=== PATIENT | female | born 1990 | race Caucasian/White ===

== ENCOUNTER 2021-03-13 08:53 | Emergency (ER) | payer BC ==
--- NOTE | 2021-03-13 09:20 | EDM.PDOC ---
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 Patient notes that she had egg retrieval at [facility] with Dr. Mendiola on 03/10 (3 days ago). She noted afterwards nausea with decreased appetite as well as diffuse abdominal cramping pains. She was given Zofran and told that this could be from free fluid in her pelvis. Symptoms have continued throughout the past 3 days. She notes chills but denies fevers. abdomen Pain Score (Numeric/FACES): 8 - Related Data Allergies Allergy/AdvReac Type Severity Reaction Status Date / Time No Known Allergies Allergy Verified 03/13/21 09:06 Home Meds: Home Meds Doxycycline [Vibramycin] 1 tab PO BID 03/13/21 [History] Ondansetron [Zofran ODT] 4 mg PO ASDIRECTED PRN 03/13/21 [History] Promethazine [Phenergan] 25 mg PO Q6H PRN #12 tab 03/13/21 [Rx] oxyCODONE HCl/Acetaminophen [Percocet 10-325 mg Tablet] 0.5 - 1 each PO Q4H PRN #18 tablet 03/13/21 [Rx] Past Medical History - Past Health History Medical/Surgical History: Denies Medical/Surgical History HEENT History: Reports: None Cardiovascular History: Reports: None Respiratory History: Reports: None Gastrointestinal History: Reports: None Genitourinary History: Reports: None 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 History: Reports: None Musculoskeletal History: Reports: None Neurological History: Reports: None Psychiatric History: Reports: None Endocrine/Metabolic History: Reports: None Hematologic History: Reports: None Immunologic History: Reports: None Oncologic (Cancer) History: Reports: None Dermatologic History: Reports: None - Infectious Disease History Infectious Disease History: Reports: Chicken Pox - Past Surgical History Head Surgeries/Procedures: Reports: None HEENT Surgical History: Reports: Adenoidectomy, Oral Surgery, Tonsillectomy Cardiovascular Surgical History: Reports: None Respiratory Surgical History: Reports: None GI Surgical History: Reports: None Female Surgical History: Reports: Other (See Below) Other Female Surgeries/Procedures: egg retrival Endocrine Surgical History: Reports: None Neurological Surgical History: Reports: None Musculoskeletal Surgical History: Reports: None Oncologic Surgical History: Reports: None Dermatological Surgical History: Reports: None Social & Family History - Family History Family Medical History: No Pertinent Family History - Tobacco Use Tobacco Use Status *Q: Never Tobacco User Second Hand Smoke Exposure: No - Caffeine Use Caffeine Use: Reports: None - Recreational Drug Use Recreational Drug Use: No ED ROS GENERAL - Review of Systems Review Of Systems: Comprehensive ROS is negative, except as noted in HPI. ED EXAM, GENERAL - Physical Exam Exam: See Below Exam Limited By: No Limitations General Appearance: Alert, WD/WN, No Apparent Distress Throat/Mouth: Normal Voice, No Airway Compromise Head: Atraumatic, Normocephalic Neck: Normal Inspection Respiratory/Chest: No Respiratory Distress, Lungs Clear, Normal Breath Sounds, No Accessory Muscle Use Cardiovascular: Normal Peripheral Pulses, No Edema, Tachycardia GI/Abdominal: Soft, Other (diffuse abdominal TTP subjetive without guarding) Extremities: Normal Inspection Neurological: Alert, Normal Cognition, Normal Gait Psychiatric: Normal Affect, Normal Mood Skin Exam: Warm, Dry, Intact, Normal Color Course - Vital Signs Last Recorded V/S: Last Vital Signs Temp 98.3 F 03/13/21 11:51 Pulse 67 03/13/21 11:51 Resp 17 03/13/21 11:51 BP 111/73 03/13/21 11:51 Pulse Ox 98 03/13/21 11:51 - Orders/Labs/Meds Orders: Active Orders 24 hr Category Date Time Status HCG QUALITATIVE,URINE [URCHEM] Stat Lab 03/13/21 09:26 Ordered UA W/JARET RFLX IF INDICATED [URIN] Stat Lab 03/13/21 09:26 Ordered Sodium Chloride 0.9% [Saline Flush] Med 03/13/21 09:26 Active 10 ml FLUSH ASDIRECTED PRN Sodium Chloride 0.9% [Saline Flush] Med 03/13/21 09:26 Active 2.5 ml FLUSH ASDIRECTED PRN Saline Lock Insert [OM.PC] Stat Oth 03/13/21 09:26 Ordered Medication Orders Sodium Chloride (Sodium Chloride 0.9% 10 Ml Syringe) 10 ml FLUSH ASDIRECTED PRN PRN Reason: Keep Vein Open Last Admin: 03/13/21 09:41 Dose: 10 ml Documented by: SILVER Sodium Chloride (Sodium Chloride 0.9% 2.5 Ml Syringe) 2.5 ml FLUSH ASDIRECTED PRN PRN Reason: Keep Vein Open Last Admin: 03/13/21 09:41 Dose: 2.5 ml Documented by: SILVER Labs: Laboratory Tests 03/13/21 03/13/21 Range/Units 09:22 09:22 WBC 16.56 H (4.0-11.0) K/uL RBC 4.81 (4.30-5.90) M/uL Hgb 13.1 (12.0-16.0) g/dL Hct 40.0 (36.0-46.0) % MCV 83.2 (80.0-98.0) fL MCH 27.2 (27.0-32.0) pg MCHC 32.8 (31.0-37.0) g/dL RDW Std Deviation 43.9 (28.0-62.0) fl RDW Coeff of Lilly 14 (11.0-15.0) % Plt Count 333 (150-400) K/uL MPV 9.80 (7.40-12.00) fL Neut % (Auto) 81.6 H (48.0-80.0) % Lymph % (Auto) 11.5 L (16.0-40.0) % Leon % (Auto) 6.7 (0.0-15.0) % Eos % (Auto) 0.1 (0.0-7.0) % Baso % (Auto) 0.1 (0.0-1.5) % Neut # (Auto) 13.5 H (1.4-5.7) K/uL Lymph # (Auto) 1.9 (0.6-2.4) K/uL Leon # (Auto) 1.1 H (0.0-0.8) K/uL Eos # (Auto) 0.0 (0.0-0.7) K/uL Baso # (Auto) 0.0 (0.0-0.1) K/uL Nucleated RBC % 0.0 /100WBC Nucleated RBCs # 0 K/uL Sodium 135 L (136-145) mmol/L Potassium 4.1 (3.5-5.1) mmol/L Chloride 103 (98-107) mmol/L Carbon Dioxide 26.0 (21.0-32.0) mmol/L BUN 9 (7.0-18.0) mg/dL Creatinine 0.7 (0.6-1.0) mg/dL Est Cr Clr Drug Dosing 103.32 mL/min Estimated GFR (MDRD) > 60.0 ml/min Glucose 93 (74-106) mg/dL Calcium 8.0 L (8.5-10.1) mg/dL Total Bilirubin 0.3 (0.2-1.0) mg/dL AST 28 (15-37) IU/L ALT 38 (14-63) IU/L Alkaline Phosphatase 85 (46-116) U/L Total Protein 6.9 (6.4-8.2) g/dL Albumin 2.4 L (3.4-5.0) g/dL Globulin 4.5 H (2.6-4.0) g/dL Albumin/Globulin Ratio 0.5 L (0.9-1.6) Meds: Medications Generic Name Dose Route Start Last Admin Trade Name Christopherq PRN Reason Stop Dose Admin Sodium Chloride 10 ml 03/13/21 09:26 03/13/21 09:41 Sodium Chloride 0.9% 10 Ml Syringe FLUSH 10 ml ASDIRECTED PRN Administration Keep Vein Open Sodium Chloride 2.5 ml 03/13/21 09:26 03/13/21 09:41 Sodium Chloride 0.9% 2.5 Ml Syringe FLUSH 2.5 ml ASDIRECTED PRN Administration Keep Vein Open Discontinued Medications Generic Name Dose Route Start Last Admin Trade Name Fretristan PRN Reason Stop Dose Admin Sodium Chloride 1,000 mls @ 999 mls/hr 03/13/21 09:26 03/13/21 09:41 Normal Saline IV 03/13/21 10:26 999 mls/hr .Bolus ONE Administration Ketorolac Tromethamine 15 mg 03/13/21 09:27 03/13/21 09:44 Ketorolac 30 Mg/Ml Sdv IVPUSH 03/13/21 09:28 15 mg ONETIME ONE Administration Morphine Sulfate 4 mg 03/13/21 09:26 03/13/21 09:46 Morphine 4 Mg/Ml Syringe IVPUSH 03/13/21 09:27 4 mg ONETIME ONE Administration Ondansetron HCl 4 mg 03/13/21 09:26 03/13/21 09:43 Ondansetron 4 Mg/2 Ml Sdv IVPUSH 03/13/21 09:27 4 mg ONETIME ONE Administration - Re-Assessments/Exams Free Text/Narrative Re-Assessment/Exam: 03/13/21 09:30 We will treat symptomatically with IV fluid bolus, Toradol, morphine, Zofran. Will get basic labs. After work-up will reach out to Dr. Mendiola. 03/13/21 10:26 I did speak with Dr. Mendiola of [facility] who recommends getting an ultrasound to rule out ovarian torsion although she believes symptoms are most likely consistent with a small amount of free pelvic fluid and ovarian hyperstimulation syndrome considering patient's leukocytosis and hyponatremia. 03/13/21 11:54 Ultrasonography is remarkable for ovarian hyperstimulation syndrome. This is consistent with Dr. Mendiola's assessment. Will discharge patient with Percocet, Phenergan. I recommended that she follow-up with Dr. Mendiola on Monday morning. I explained return precautions for ovarian torsion as patient is at high risk of ovarian torsion. She understands. Departure - Departure Time of Disposition: 11:54 Disposition: Home, Self-Care 01 Condition: Good Clinical Impression: Ovarian hyperstimulation syndrome - Discharge Information Prescriptions: oxyCODONE HCl/Acetaminophen [Percocet 10-325 mg Tablet] 0.5 - 1 each PO Q4H PRN #18 tablet PRN Reason: Pain Promethazine [Phenergan] 25 mg PO Q6H PRN #12 tab PRN Reason: Nausea/Vomiting Instructions: Ovarian Torsion Referrals: Raquel Mendiola MD [Primary Care Provider] - Forms: ED Department Discharge Additional Instructions: Your assessment is consistent with ovarian hyperstimulation syndrome. You have no evidence of ovarian torsion. We did briefly discuss ovarian torsion and if any of the symptoms that we discussed occur then he should come back to the emergency department. Specifically if you experience pain suddenly changing or worsening on one side of your pelvis you need to come back. Our computer system does not have educational information for ovarian hyperstimulation syndrome so I did provide you with some educational information of ovarian torsion. This does not mean that you have ovarian torsion but rather this is a you can read and no signs and symptoms to watch for. If you start experience heavy vaginal bleeding you should also come back. I sent 3 different prescriptions to your pharmacy, two are for pain, one is for nausea. The following information is given to patients seen in the emergency department who are being discharged to home. This information is to outline your options for follow-up care. We provide all patients seen in our emergency department with a follow-up referral. The need for follow-up, as well as the timing and circumstances, are variable depending upon the specifics of your emergency department visit. If you don't have a primary care physician on staff, we will provide you with a referral. We always advise you to contact your personal physician following an emergency department visit to inform them of the circumstance of the visit and for follow-up with them and/or the need for any referrals to a consulting ecialist. The emergency department will also refer you to a specialist when appropriate. This referral assures that you have the opportunity for follow-up care with a specialist. All of these measure are taken in an effort to provide you with optimal care, which includes your follow-up. Under all circumstances we always encourage you to contact your private physician who remains a resource for coordinating your care. When calling for follow-up care, please make the office aware that this follow-up is from your recent emergency room visit. If for any reason you are refused follow-up, please contact the [facility] Emergency Department at and asked to speak to the emergency department charge nurse. Please follow up with your primary care physician. If you do not have a primary care physician, see below: [facility] [address] [place] [id number] [facility] [address] [place] [id number] [facility] [address] [place] [id number] Sepsis Event Note (ED) - Evaluation Sepsis Screening Result: No Definite Risk - Focused Exam Vital Signs: Vital Signs Temp Pulse Resp BP Pulse Ox 03/13/21 11:51 98.3 F 67 17 111/73 98 03/13/21 09:08 97.4 F 128 H 18 121/80 97 - My Orders Last 24 Hours: My Active Orders 03/13/21 09:26 HCG QUALITATIVE,URINE [URCHEM] Stat UA W/JARET RFLX IF INDICATED [URIN] Stat Sodium Chloride 0.9% [Saline Flush] 10 ml FLUSH ASDIRECTED PRN Sodium Chloride 0.9% [Saline Flush] 2.5 ml FLUSH ASDIRECTED PRN Saline Lock Insert [OM.PC] Stat - Assessment/Plan Last 24 Hours: My Active Orders 03/13/21 09:26 HCG QUALITATIVE,URINE [URCHEM] Stat UA W/JARET RFLX IF INDICATED [URIN] Stat Sodium Chloride 0.9% [Saline Flush] 10 ml FLUSH ASDIRECTED PRN Sodium Chloride 0.9% [Saline Flush] 2.5 ml FLUSH ASDIRECTED PRN Saline Lock Insert [OM.PC] Stat
[2021-03-13] MEDS ORDERED: Sodium Chloride 0.9% 1,000 ML IV ONE (09:26)
[2021-03-13] MEDS ORDERED: Sodium Chloride 0.9% 10 ML Syringe FLUSH PRN (09:26)
[2021-03-13] MEDS ORDERED: Morphine 4 MG/ML Syringe IVPUSH ONE ×2 (09:26→11:57)
[2021-03-13] MEDS ORDERED: Ondansetron 4 MG/2 ML SDV IVPUSH ONE ×2 (09:26→11:57)
[2021-03-13] MEDS ORDERED: Sodium Chloride 0.9% 2.5 ML Syringe FLUSH PRN (09:26)
[2021-03-13] MEDS ORDERED: Ketorolac 30 MG/ML SDV IVPUSH ONE (09:27)
[2021-03-13 09:47] LABS: BLOOD UREA NITROGEN,BUN 9 mg/dL (7.0-18.0); CHLORIDE,CL 103 mmol/L (98-107); GLUCOSE RANDOM 93 mg/dL (74-106); POTASSIUM,K 4.1 mmol/L (3.5-5.1); SODIUM,NA 135 mmol/L (136-145)
--- NOTE | 2021-03-13 11:50 | US ---
Indication: Bilateral pelvic pain. Technique: Pelvic ultrasound. Endovaginal imaging of the pelvis was obtained to better evaluate the adnexa and endometrial complex. Color/spectral Doppler was performed to evaluate for ovarian torsion. Comparison: None. Findings: Uterine corpus measures 8.9 x 5.4 x 3.8 cm. Right ovary measures 11.4 x 6.8 x 10.6 cm. Left ovary measures 10.0 x 5.8 x 10.0 cm. There is a moderate amount of ascites in the rectovaginal pouch of Mike. The ovaries are enlarged bilaterally, with multiple follicular cysts. There is no evidence on grayscale imaging or color/spectral Doppler for ovarian torsion. Normal, low resistance arterial blood flow is preserved bilaterally to both ovaries. Impression: 1. Findings are suspicious for ovarian hyperstimulation syndrome. 2. No findings on grayscale imaging, or color/spectral Doppler, for ovarian torsion. 3. Report called to Dr. Gunn, Emergency Department, 03/13/21, 1150 am. Dictated by Matt Andrews MD @ 03/13/2021 11:50:[address] Matt Andrews @ Jem 2020 11:50AM
[2021-03-13 12:38] VITALS: BP 107/68; PULSE 96
== END 2021-03-13 12:38 | disposition home or self-care (01) ==
LOC: MW.ED 08:53
DX: N99.83 Residual ovary syndrome (principal)
CPT/HCPCS: 36415; 76830; 80053; 85025; 96374; 96375; 96376; 99284; J1885; J2270; J2405; J7030; 76857

== ENCOUNTER 2021-06-08 21:12 | Emergency (ER) | payer BC ==
--- NOTE | 2021-06-09 00:40 | EDM.PDOC ---
ED HPI GENERAL MEDICAL PROBLEM - General Chief Complaint: CAREGIVERS NON MEDICAL Problem Stated Complaint: 5 WEEKS , BLEEDING Time Seen by Provider: 06/09/21 00:15 Source of Information: Reports: Patient History Limitations: Reports: No Limitations - History of Present Illness INITIAL COMMENTS - FREE TEXT/NARRATIVE: Patient is a 30-year-old female who states he 2 possibly 5 weeks and has been undergoing in vitro fertilization presents today for vaginal bleeding. She has had her beta tested 3 times last week and is being improving appropriately. States this evening she developed some vaginal bleeding also clots being passed. She came directly here did not place a pad. She states she does not feel tired or weak or have any lightheadedness. She does have some lower abdominal cramping but is manageable. She denies any nausea vomiting fever chills. - Related Data Allergies Allergy/AdvReac Type Severity Reaction Status Date / Time No Known Allergies Allergy Verified 03/13/21 09:06 Home Meds: Home Meds Doxycycline [Vibramycin] 1 tab PO BID 03/13/21 [History] Ibuprofen [Motrin] 600 mg PO Q6H PRN #20 tab 03/13/21 [Rx] Ondansetron [Zofran ODT] 4 mg PO ASDIRECTED PRN 03/13/21 [History] Promethazine [Phenergan] 25 mg PO Q6H PRN #12 tab 03/13/21 [Rx] oxyCODONE HCl/Acetaminophen [Percocet 10-325 mg Tablet] 0.5 - 1 each PO Q4H PRN #18 tablet 03/13/21 [Rx] Past Medical History - Past Health History Medical/Surgical History: Denies Medical/Surgical History HEENT History: Reports: None Cardiovascular History: Reports: None Respiratory History: Reports: None Gastrointestinal History: Reports: None Genitourinary History: Reports: None CAREGIVERS NON MEDICAL History: Reports: None Musculoskeletal History: Reports: None Neurological History: Reports: None Psychiatric History: Reports: None Endocrine/Metabolic History: Reports: None Hematologic History: Reports: None Immunologic History: Reports: None Oncologic (Cancer) History: Reports: None Dermatologic History: Reports: None - Infectious Disease History Infectious Disease History: Reports: Chicken Pox - Past Surgical History Head Surgeries/Procedures: Reports: None HEENT Surgical History: Reports: Adenoidectomy, Oral Surgery, Tonsillectomy Cardiovascular Surgical History: Reports: None Respiratory Surgical History: Reports: None GI Surgical History: Reports: None Female Surgical History: Reports: Other (See Below) Other Female Surgeries/Procedures: egg retrival Endocrine Surgical History: Reports: None Neurological Surgical History: Reports: None Musculoskeletal Surgical History: Reports: None Oncologic Surgical History: Reports: None Dermatological Surgical History: Reports: None Social & Family History - Family History Family Medical History: No Pertinent Family History - Tobacco Use Tobacco Use Status *Q: Never Tobacco User - Caffeine Use Caffeine Use: Reports: None ED ROS GENERAL - Review of Systems Review Of Systems: See Below Constitutional: Reports: No Symptoms HEENT: Reports: No Symptoms Respiratory: Reports: No Symptoms Cardiovascular: Reports: No Symptoms Endocrine: Reports: No Symptoms GI/Abdominal: Reports: No Symptoms : Reports: Other (Vaginal bleeding) Musculoskeletal: Reports: No Symptoms Skin: Reports: No Symptoms Neurological: Reports: No Symptoms Psychiatric: Reports: No Symptoms Hematologic/Lymphatic: Reports: No Symptoms Immunologic: Reports: No Symptoms ED EXAM - Physical Exam Exam: See Below Exam Limited By: No Limitations General Appearance: Alert, WD/WN, No Apparent Distress Respiratory/Chest: No Respiratory Distress, Lungs Clear, Normal Breath Sounds Cardiovascular: Normal Peripheral Pulses, Regular Rate, Rhythm GI/Abdominal Exam: Normal Bowel Sounds, Soft, Non-Tender Extremities: Normal Inspection Neurological: Alert, Oriented Course - Vital Signs Last Recorded V/S: Last Vital Signs Temp 97.3 F 06/08/21 21:24 Pulse 104 H 06/08/21 21:24 Resp 18 06/08/21 21:24 BP 142/78 H 06/08/21 21:24 Pulse Ox 100 06/08/21 21:24 - Orders/Labs/Meds Orders: Active Orders 24 hr Category Date Time Status UA W/MICROSCOPIC [URIN] Stat Lab 06/08/21 21:22 Ordered Labs: Laboratory Tests 06/09/21 06/09/21 06/09/21 Range/Units 00:20 00:20 00:20 WBC 7.44 (4.0-11.0) K/uL RBC 4.82 (4.30-5.90) M/uL Hgb 13.0 (12.0-16.0) g/dL Hct 39.2 (36.0-46.0) % MCV 81.3 (80.0-98.0) fL MCH 27.0 (27.0-32.0) pg MCHC 33.2 (31.0-37.0) g/dL RDW Std Deviation 43.5 (28.0-62.0) fl RDW Coeff of Lilly 15 (11.0-15.0) % Plt Count 316 (150-400) K/uL MPV 9.20 (7.40-12.00) fL Neut % (Auto) 57.5 (48.0-80.0) % Lymph % (Auto) 34.0 (16.0-40.0) % [place] % (Auto) 7.7 (0.0-15.0) % Eos % (Auto) 0.7 (0.0-7.0) % Baso % (Auto) 0.1 (0.0-1.5) % Neut # (Auto) 4.3 (1.4-5.7) K/uL Lymph # (Auto) 2.5 H (0.6-2.4) K/uL [place]y # (Auto) 0.6 (0.0-0.8) K/uL Eos # (Auto) 0.1 (0.0-0.7) K/uL Baso # (Auto) 0.0 (0.0-0.1) K/uL Sodium 139 (136-145) mmol/L Potassium 3.2 L (3.5-5.1) mmol/L Chloride 104 (98-107) mmol/L Carbon Dioxide 26.1 (21.0-32.0) mmol/L BUN 6 L (7.0-18.0) mg/dL Creatinine 0.7 (0.6-1.0) mg/dL Est Cr Clr Drug Dosing 103.32 mL/min Estimated GFR (MDRD) > 60.0 ml/min Glucose 115 H (74-106) mg/dL Calcium 8.4 L (8.5-10.1) mg/dL Total Bilirubin 0.2 (0.2-1.0) mg/dL AST 31 (15-37) IU/L ALT 69 H (14-63) IU/L Alkaline Phosphatase 89 (46-116) U/L Total Protein 7.0 (6.4-8.2) g/dL Albumin 3.2 L (3.4-5.0) g/dL Globulin 3.8 (2.6-4.0) g/dL Albumin/Globulin Ratio 0.8 L (0.9-1.6) HCG, Quant 8084.0 mIU/mL Blood Type O POSITIVE - Re-Assessments/Exams Free Text/Narrative Re-Assessment/Exam: 06/09/21 01:44 Patient beta is 8084 again patient does not have a pattern. We are going to do a pelvic exam however patient would like to wait at this time. He understands risk of not doing a pelvic exam. Patient will call [place] her in vitro fertilization tomorrow to try to change follow-up to have a repeat ultrasound done. She is also O+. Departure - Departure Time of Disposition: 01:46 Disposition: Home, Self-Care 01 Condition: Good Clinical Impression: Vaginal bleeding in - Discharge Information *PRESCRIPTION DRUG MONITORING PROGRAM REVIEWED*: Not Applicable *COPY OF PRESCRIPTION DRUG MONITORING REPORT IN PATIENT DIDI: Not Applicable Instructions: Vaginal Bleeding During , First Trimester Referrals: PCP,Not In Area [Primary Care Provider] - Forms: ED Department Discharge Additional Instructions: The following information is given to patients seen in the emergency department who are being discharged to home. This information is to outline your options for follow-up care. We provide all patients seen in our emergency department with a follow-up referral. The need for follow-up, as well as the timing and circumstances, are variable depending upon the specifics of your emergency department visit. If you don't have a primary care physician on staff, we will provide you with a referral. We always advise you to contact your personal physician following an emergency department visit to inform them of the circumstance of the visit and for follow-up with them and/or the need for any referrals to a consulting specialist. The emergency department will also refer you to a specialist when appropriate. This referral assures that you have the opportunity for follow-up care with a specialist. All of these measure are taken in an effort to provide you with optimal care, which includes your follow-up. Under all circumstances we always encourage you to contact your private physician who remains a resource for coordinating your care. When calling for follow-up care, please make the office aware that this follow-up is from your re cent emergency room visit. If for any reason you are refused follow-up, please contact the [facility] Emergency Department at and asked to speak to the emergency department charge nurse. Please follow up with your primary care physician. If you do not have a primary care physician, see below: [facility] [address] [place] [id number] [facility] [address] [place] [id number] You were seen today for vaginal bleeding. We repeated your beta hCG and is now 8084. You follow-up in [place] recommend call your doctor tomorrow to be beta listed is to have your beta redrawn. Have any increased bleeding feeling tired or fatigued or seen tissue please return to the ED immediately otherwise continue to follow-up with your primary care physician/[employer] doctor. Sepsis Event Note (ED) - Focused Exam Vital Signs: Vital Signs Temp Pulse Resp BP Pulse Ox 06/08/21 21:24 97.3 F 104 H 18 142/78 H 100 - Assessment/Plan Plan: Patient is a 30-year-old female who presents today for vaginal bleeding. Patient believes to be around 5 weeks . She says her last beta was around 1300 on Monday we will recheck her beta do a pelvic exam reassess patient.
[2021-06-09 01:15] LABS: BLOOD UREA NITROGEN,BUN 6 mg/dL (7.0-18.0); CARBON DIOXIDE,CO2 26.1 mmol/L (21.0-32.0); CHLORIDE,CL 104 mmol/L (98-107); GLUCOSE RANDOM 115 mg/dL (74-106); POTASSIUM,K 3.2 mmol/L (3.5-5.1); SODIUM,NA 139 mmol/L (136-145)
[2021-06-09 01:56] VITALS: BP 136/86; PULSE 109
== END 2021-06-09 01:57 | disposition home or self-care (01) ==
LOC: MW.ED 21:12
DX: O20.9 Hemorrhage in early pregnancy, unspecified (principal); Z3A.01 Less than 8 weeks gestation of pregnancy
CPT/HCPCS: 36415; 80053; 84702; 85025; 86900; 86901; 99284

== ENCOUNTER 2021-06-15 08:21 | Emergency (ER) | payer BC ==
--- NOTE | 2021-06-15 11:53 | US ---
INDICATION: female; vaginal bleeding. TECHNIQUE: Transvaginal pelvic ultrasound. FINDINGS: Single viable intrauterine gestation of 6 weeks and 2 days duration. cardiac activity is noted at 110 beats per minute. [place]-rump length is measuring 0.23 cm. Yolk sac is measuring 0.58 cm. Right ovary is not visualized and the left ovary is measuring 1.4 x 2.4 x 1.4 cm. No free fluid in the cul de sac. Expected date of delivery is 02/06/2022. A 1.8 x 0.4 x 1.6 cm subchorionic hemorrhage. Impression : 1. Single viable intrauterine gestation of 6 weeks and 2 days duration. 2. The 1.8 x 0.4 x 1.6 cm subchorionic hemorrhage. 3. cardiac activity is noted at 110 beats per minute. Dictated by William Singh MD @ 06/15/2021 11:51:30 AM (Electronically Signed)
--- NOTE | 2021-06-15 12:27 | EDM.PDOC ---
ED HPI GENERAL MEDICAL PROBLEM - General Chief Complaint: General Stated Complaint: and heavily bleeding Time Seen by Provider: 06/15/21 08:27 - History of Present Illness INITIAL COMMENTS - FREE TEXT/NARRATIVE: CHIEF COMPLAINT(S): Vaginal bleeding HISTORY OF PRESENT ILLNESS: This is a 31-year-old woman approximately 6 weeks and 3 days via IVF who presents to the emergency department with vaginal bleeding. Patient states that she had embryo transfer on May 21, 2021. She states that she has had some vaginal bleeding for approximately 1 week intermittent. She states that she has been mostly passing clots. She states today however she has been soaking through 2 pads in 1 hour and had a large blood clot. She denies any vaginal pain, vaginal discharge, pelvic pain. She states that they told her to come to the emergency department. She denies any chest pain, shortness of breath, injury. REVIEW OF SYSTEMS: Constitutional: Denies fever, chills. Eyes: Denies eye pain Ears, Nose, Mouth, & Throat: Denies earache Cardiovascular: Denies chest pain Respiratory: Denies shortness of breath Gastrointestinal: Denies Nausea, vomiting, diarrhea, hematochezia. Genitourinary: Positive for vaginal bleeding. Denies pelvic pain denies hematuria Skin:Denies a rash MSK: Denies joint pain Neurological: Denies blurred vision Psychiatric: Denies depression PAST MEDICAL HISTORY: As per history of present illness and as reviewed below otherwise noncontributory. SURGICAL HISTORY: As per history of present illness and as reviewed below otherwise noncontributory. SOCIAL HISTORY: As per history of present illness and as reviewed below otherwise noncontributory. FAMILY HISTORY: As per history of present illness and as reviewed below otherwise noncontributory. EXAMINATION OF ORGAN SYSTEMS/BODY AREAS: Constitutional: Heart rate 92, respiratory rate 20 with an oxygen saturation of 99% on room air. Temperature 36.6. Blood pressure 130/84 General: Default value Psychiatric: Appropriate mood and affect. Eyes: No scleral icterus or conjunctival erythema ENMT: Moist mucous membranes. No pharyngeal erythema Cardiovascular: Regular, rate, and rhythm. No gallops, murmurs, or rubs. Bilateral upper extremity pulses symmetric and intact. No peripheral edema. No JVD. Respiratory: Lungs clear to auscultation bilaterally. No wheezes, rales, or rhonchi. Gastrointestinal: Soft, non-tender, non-distended. Normoactive bowel sounds Genitourinary: No suprapubic tenderness on sterile speculum examination with RN cattle sprayer present there was some blood in the posterior vaginal vault. No clots noted. No active bleeding noted. Cervix is abnormal but does not appear to be dilated. No adnexal or cervical motion tenderness. Musculoskeletal: Normal range of motion. Skin: No lesions or abrasions. Neurological: Alert, GCS 15 MEDICAL DECISION MAKING AND COURSE IN THE ED WITH INTERPRETATION/REVIEW OF DIAGNOSTIC STUDIES: This is a 31-year-old woman who is approximately 6 weeks and 3 days via in vitro fertilization who comes to the emergency department with vaginal bleeding and vaginal clots. At this time obtain CBC, hCG and type and screen. Will obtain a formal ultrasound. Bedside transabdominal OB ultrasound performed by self There appears to be heart rate with heart tones in the 100s. No other obvious abnormality. Laboratory: CBC is unremarkable. hCG is 27,312 which is up from prior. The radiological images were viewed by myself along with reading the report from the radiologist. Transabdominal OB ultrasound reveals a single viable intrauterine gestation of 6 weeks and 2 days. There is a small subchorionic hemorrhage. After imaging I did contact [facility] and spoke with Dr. Gibson who recommended close follow-up with obstetrics at [facility]. I did discuss the results with the patient. At this time she was amenable to discharge. We did contact [facility] and set up close follow-up appointment. She was given strict return precautions. Patient was amenable to discharge and had no further questions. DISPOSITION: The patient was discharged home in stable condition. The patient will follow up with OB at her scheduled appointment. CONDITION: Fair PROCEDURES: None FINAL IMPRESSION(S)/DIAGNOSES: 1. Acute vaginal bleeding, threatened Alex Freeman M.D. 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 History: Reports: None Musculoskeletal History: Reports: None Neurological History: Reports: None Psychiatric History: Reports: None Endocrine/Metabolic History: Reports: None Hematologic History: Reports: None Immunologic History: Reports: None Oncologic (Cancer) History: Reports: None Dermatologic History: Reports: None - Infectious Disease History Infectious Disease History: Reports: Chicken Pox - Past Surgical History Head Surgeries/Procedures: Reports: None HEENT Surgical History: Reports: Adenoidectomy, Oral Surgery, Tonsillectomy Cardiovascular Surgical History: Reports: None Respiratory Surgical History: Reports: None GI Surgical History: Reports: None Female Surgical History: Reports: Other (See Below) Other Female Surgeries/Procedures: egg retrival Endocrine Surgical History: Reports: None Neurological Surgical History: Reports: None Musculoskeletal Surgical History: Reports: None Oncologic Surgical History: Reports: None Dermatological Surgical History: Reports: None Social & Family History - Family History Family Medical History: No Pertinent Family History - Tobacco Use Second Hand Smoke Exposure: No - Caffeine Use Caffeine Use: Reports: None - Recreational Drug Use Recreational Drug Use: No ED ROS GENERAL - Review of Systems Review Of Systems: See Below ED EXAM, GENERAL - Physical Exam Exam: See Below Course - Vital Signs Last Recorded V/S: Last Vital Signs Temp 37.1 C 06/15/21 12:50 Pulse 105 H 06/15/21 12:50 Resp 20 06/15/21 12:50 BP 143/87 H 06/15/21 12:50 Pulse Ox 97 06/15/21 12:50 - Orders/Labs/Meds Labs: Laboratory Tests 06/15/21 06/15/21 06/15/21 Range/Units 09:22 09:22 09:22 WBC 9.90 (4.0-11.0) K/uL RBC 5.01 (4.30-5.90) M/uL Hgb 13.5 (12.0-16.0) g/dL Hct 40.5 (36.0-46.0) % MCV 80.8 (80.0-98.0) fL MCH 26.9 L (27.0-32.0) pg MCHC 33.3 (31.0-37.0) g/dL RDW Std Deviation 43.6 (28.0-62.0) fl RDW Coeff of Lilly 15 (11.0-15.0) % Plt Count 356 (150-400) K/uL MPV 9.60 (7.40-12.00) fL Neut % (Auto) 73.2 (48.0-80.0) % Lymph % (Auto) 20.8 (16.0-40.0) % Howell % (Auto) 5.4 (0.0-15.0) % Eos % (Auto) 0.5 (0.0-7.0) % Baso % (Auto) 0.1 (0.0-1.5) % Neut # (Auto) 7.3 H (1.4-5.7) K/uL Lymph # (Auto) 2.1 (0.6-2.4) K/uL Howell # (Auto) 0.5 (0.0-0.8) K/uL Eos # (Auto) 0.1 (0.0-0.7) K/uL Baso # (Auto) 0.0 (0.0-0.1) K/uL Nucleated RBC % 0.0 /100WBC Nucleated RBCs # 0 K/uL HCG, Quant 67473.0 mIU/mL Blood Type O POSITIVE Antibody Screen NEGATIVE Departure - Departure Time of Disposition: 12:26 Disposition: Home, Self-Care 01 Condition: Fair Clinical Impression: Threatened , Subchorionic bleed - Discharge Information *PRESCRIPTION DRUG MONITORING PROGRAM REVIEWED*: No *COPY OF PRESCRIPTION DRUG MONITORING REPORT IN PATIENT DIDI: No Instructions: Threatened Miscarriage, [id number], Vaginal Bleeding During , First Trimester, [id number] Referrals: [facility] [Outside] - 06/17/21 10:45 am (You previously have an US scheduled for this day. [facility] will call you with any changes to appointment times. 0900: Ultrasound 1045: Dr. Lopez) Forms: ED Department Discharge Additional Instructions: You were evaluated today on an emergent basis. We did speak with your specialist at [facility]. They recommended you set up care with [facility]estin here in [place]. I would contact them today to set up an appointment. I do understand that they told you that they typically see patients at 8 weeks or longer however given the recommendation from Dr. Gibson would like you to follow-up sooner. If you have any worsening bleeding, worsening pain or you're concerned please return to the emergency department. [facility] [address] [place] [address] [facility] [address] [place] [id number] The patient is informed of any results of their evaluation and diagnostic workup and all questions are answered. They are given discharge instructions and return precautions. The patient is stable for discharge. The patient states they understand and agree with the plan and that they will return if their symptoms get worse or if they have any new concerns. The following information is given to patients seen in the emergency department who are being discharged to home. This information is to outline your options for follow-up care. We provide all patients seen in our emergency department with a follow-up referral. The need for follow-up, as well as the timing and circumstances, are variable depending upon the specifics of your emergency department visit. If you don't have a primary care physician on staff, we will provide you with a referral. We always advise you to contact your personal physician following an emergency department visit to inform them of the circumstance of the visit and f or follow-up with them and/or the need for any referrals to a consulting specialist. The emergency department will also refer you to a specialist when appropriate. This referral assures that you have the opportunity for follow-up care with a specialist. All of these measure are taken in an effort to provide you with optimal care, which includes your follow-up. Under all circumstances we always encourage you to contact your private physician who remains a resource for coordinating your care. When calling for follow-up care, please make the office aware that this follow-up is from your recent emergency room visit. If for any reason you are refused follow-up, please contact the [facility] Emergency Department at and asked to speak to the emergency department charge nurse. Sepsis Event Note (ED) - Evaluation Sepsis Screening Result: No Definite Risk
[2021-06-15 16:49] VITALS: BP 143/87; PULSE 105
== END 2021-06-15 12:50 | disposition home or self-care (01) ==
LOC: MW.ED 08:21
DX: O20.0 Threatened abortion (principal); Z3A.01 Less than 8 weeks gestation of pregnancy
CPT/HCPCS: 36415; 76817; 76817-26; 84702; 85025; 86850; 86900; 86901; 99284-25

== ENCOUNTER 2021-07-09 05:31 | Day surgery (SDC) | payer BC ==
[2021-07-09] MEDS ORDERED: Lactated Ringers 1,000 ML IV SCH (06:00)
[2021-07-09] MEDS ORDERED: Scopolamine 1.5 MG Transdermal Patch TOP ONE (06:42)
[2021-07-09] MEDS ORDERED: Metoclopramide 10 MG/2 ML SDV IVPUSH PRN (06:46)
[2021-07-09] MEDS ORDERED: HYDROmorphone 1 MG/ML Syringe IVPUSH PRN (06:46)
[2021-07-09] MEDS ORDERED: Naloxone 0.4 MG/ML SDV IVPUSH PRN (06:46)
[2021-07-09] MEDS ORDERED: Albuterol 0.083% 2.5 MG/3 ML Neb Soln NEB PRN (06:46)
[2021-07-09] MEDS ORDERED: Morphine 2 MG/ML SYRINGE IVPUSH PRN (06:46)
[2021-07-09] MEDS ORDERED: fentaNYL 100 MCG/2 ML SDV IVPUSH PRN (06:46)
--- NOTE | 2021-07-09 06:46 | PCM.PREANE ---
Preanesthetic Assessment - Procedure Proposed Procedure: Hysteroscopy, D&C - Anesthesia/Transfusion/Family Hx Anesthesia History: Prior Anesthesia Without Reaction Family History of Anesthesia Reaction: No Transfusion History: No Prior Transfusion(s) - Review of Systems General: No Symptoms Pulmonary: No Symptoms Cardiovascular: No Symptoms Gastrointestinal: No Symptoms Neurological: No Symptoms Other: Reports: None - Physical Assessment NPO Status Date: 07/08/21 NPO Status Time: 20:30 Vital Signs: Last Vital Signs Temp 97.5 F 07/09/21 05:47 Pulse 90 07/09/21 05:47 Resp 16 07/09/21 05:47 BP 113/78 07/09/21 05:47 Pulse Ox 100 07/09/21 05:47 Height: 5 ft 4 in Weight: 69.853 kg ASA Class: 1 Mental Status: Alert & Oriented x3 Airway Class: Mallampati = 3 Dentition: Reports: Normal Dentition Thyro-Mental Finger Breadths: 3 Mouth Opening Finger Breadths: 3 ROM/Head Extension: Full Lungs: Clear to Auscultation, Normal Respiratory Effort - Lab Values: Laboratory Last Values WBC 6.61 K/uL (4.0-11.0) 07/09/21 06:03 RBC 4.39 M/uL (4.30-5.90) 07/09/21 06:03 Hgb 11.5 g/dL (12.0-16.0) L 07/09/21 06:03 Hct 36.1 % (36.0-46.0) 07/09/21 06:03 MCV 82.2 fL (80.0-98.0) 07/09/21 06:03 MCH 26.2 pg (27.0-32.0) L 07/09/21 06:03 MCHC 31.9 g/dL (31.0-37.0) 07/09/21 06:03 RDW Std Deviation 44.5 fl (28.0-62.0) 07/09/21 06:03 RDW Coeff of Lilly 15 % (11.0-15.0) 07/09/21 06:03 Plt Count 327 K/uL (150-400) 07/09/21 06:03 MPV 9.50 fL (7.40-12.00) 07/09/21 06:03 Neut % (Auto) 50.1 % (48.0-80.0) 07/09/21 06:03 Lymph % (Auto) 39.3 % (16.0-40.0) 07/09/21 06:03 [place] % (Auto) 7.9 % (0.0-15.0) 07/09/21 06:03 Eos % (Auto) 2.4 % (0.0-7.0) 07/09/21 06:03 Baso % (Auto) 0.3 % (0.0-1.5) 07/09/21 06:03 Neut # (Auto) 3.3 K/uL (1.4-5.7) 07/09/21 06:03 Lymph # (Auto) 2.6 K/uL (0.6-2.4) H 07/09/21 06:03 [place] # (Auto) 0.5 K/uL (0.0-0.8) 07/09/21 06:03 Eos # (Auto) 0.2 K/uL (0.0-0.7) 07/09/21 06:03 Baso # (Auto) 0.0 K/uL (0.0-0.1) 07/09/21 06:03 Nucleated RBC % 0.0 /100WBC 07/09/21 06:03 Nucleated RBCs # 0 K/uL 07/09/21 06:03 - Allergies Allergies/Adverse Reactions: Allergies Allergy/AdvReac Type Severity Reaction Status Date / Time No Known Allergies Allergy Verified 07/09/21 06:21 - Acknowledgements Anesthesia Type Planned: General Anesthesia Pt an Appropriate Candidate for the Planned Anesthesia: Yes Alternatives and Risks of Anesthesia Discussed w Pt/Guardian: Yes Pt/Guardian Understands and Agrees with Anesthesia Plan: Yes PreAnesthesia Questionnaire - Past Health History Medical/Surgical History: Denies Medical/Surgical History HEENT History: Reports: None Cardiovascular History: Reports: None Respiratory History: Reports: None Gastrointestinal History: Reports: None Genitourinary History: Reports: None HR DIRECTOR History: Reports: None Musculoskeletal History: Reports: None Neurological History: Reports: None Psychiatric History: Reports: None Endocrine/Metabolic History: Reports: None Hematologic History: Reports: None Immunologic History: Reports: None Oncologic (Cancer) History: Reports: None Dermatologic History: Reports: None - Infectious Disease History Infectious Disease History: Reports: Chicken Pox - Past Surgical History Head Surgeries/Procedures: Reports: None HEENT Surgical History: Reports: Adenoidectomy, Oral Surgery, Tonsillectomy Cardiovascular Surgical History: Reports: None Respiratory Surgical History: Reports: None GI Surgical History: Reports: None Female Surgical History: Reports: LEEP, Other (See Below) Other Female Surgeries/Procedures: egg retrival, states christiano salpingectomy Endocrine Surgical History: Reports: None Neurological Surgical History: Reports: None Musculoskeletal Surgical History: Reports: None Oncologic Surgical History: Reports: None Dermatological Surgical History: Reports: None - SUBSTANCE USE Tobacco Use Status *Q: Never Tobacco User - HOME MEDS Home Medications: Home Meds Desogestrel-Ethinyl Estradiol [Isibloom 28 Day Tablet] 1 tab PO DAILY 07/02/21 [History] - CURRENT (IN HOUSE) MEDS Current Meds: Current Medications Lactated Ringer's (Ringers, Lactated) 1,000 mls @ 125 mls/hr IV ASDIRECTED [facility] Last Admin: 07/09/21 06:15 Dose: 125 mls/hr Documented by: Scopolamine (Scopolamine 1.5 Mg Transdermal Patch) 1.5 mg TOP ONETIME ONE Stop: 07/09/21 06:43
[2021-07-09] MEDS ORDERED: Propofol 200 MG/20 ML SDV ONE (06:56)
[2021-07-09] MEDS ORDERED: fentaNYL 100 MCG/2 ML SDV ONE (06:56)
[2021-07-09] MEDS ORDERED: Midazolam 1 MG/ML 2 ML SDV ONE (06:57)
[2021-07-09] MEDS ORDERED: Ketorolac 30 MG/ML SDV ONE (06:58)
[2021-07-09] MEDS ORDERED: Glycopyrrolate 0.2 MG/ML SDV ONE (06:58)
[2021-07-09] MEDS ORDERED: Lidocaine 2% 5 ML SDV ONE (06:58)
[2021-07-09] MEDS ORDERED: ceFAZolin 1 GM Vial ONE (07:00)
[2021-07-09] MEDS ORDERED: Sodium Chloride 0.9% 20 ML ONE (07:00)
[2021-07-09] MEDS ORDERED: Dexamethasone 4 MG/ML 5 ML MDV ONE (07:12)
[2021-07-09] MEDS ORDERED: Ketorolac 30 MG/ML SDV IVPUSH ONE (07:41)
--- NOTE | 2021-07-09 07:45 | PCM.OPNOTE ---
- General Post-Op/Procedure Note Date of Surgery/Procedure: 07/09/21 Operative Procedure(s): Diagnostic hysteroscopy. Dilation and curettage Findings: Normal-sized anteverted uterus, sound to 8cm Scant clot and tissue within uterus Pre Op Diagnosis: 31yo with thickened endometrium, suspected incomplete Post-Op Diagnosis: Same Anesthesia Technique: General LMA Primary Surgeon: Robina Massey Anesthesia Provider: Elder Bailey Pathology: Endometrial curettings Fluid Replacement, Intraop: 600 Output, Urine Amount: 25 EBL in mLs: 5 Complications: None Condition: Good Free Text/Narrative:: Intake & Output 07/08/21 07/09/21 07/09/21 22:59 06:59 14:59 Output Total 25 Balance -25 1g Ancef IV given for antibiotic prophylaxis Hysteroscopic fluid deficit 100cc NS
--- NOTE | 2021-07-09 07:53 | PCM.POSTAN ---
POST ANESTHESIA ASSESSMENT - MENTAL STATUS Mental Status: Alert, Oriented - VITAL SIGNS Vital Signs: Last Vital Signs Temp 96.8 F L 07/09/21 07:40 Pulse 70 07/09/21 07:45 Resp 14 07/09/21 07:45 BP 86/47 L 07/09/21 07:45 Pulse Ox 100 07/09/21 07:45 - RESPIRATORY Respiratory Status: Respiratory Rate WNL, Airway Patent, O2 Saturation Stable - CARDIOVASCULAR CV Status: Pulse Rate WNL, Blood Pressure Stable - GASTROINTESTINAL GI Status: No Symptoms - PAIN Pain Score: 2 - POST OP HYDRATION Hydration Status: Adequate & Stable
--- NOTE | 2021-07-09 08:10 | PCM48HPAN ---
Post Anesthesia Note - EVALUATION WITHIN 48HRS OF ANESTHETIC Vital Signs in Normal Range: Yes Patient Participated in Evaluation: Yes Respiratory Function Stable: Yes Airway Patent: Yes Cardiovascular Function Stable: Yes Hydration Status Stable: Yes Pain Control Satisfactory: Yes Nausea and Vomiting Control Satisfactory: Yes Mental Status Recovered: Yes Vital Signs: Last Vital Signs Temp 96.8 F L 07/09/21 07:40 Pulse 74 07/09/21 07:55 Resp 17 07/09/21 07:55 BP 105/66 07/09/21 07:55 Pulse Ox 100 07/09/21 07:55 - COMMENTS/OBSERVATIONS Free Text/Narrative:: Pt doing well post-op. VSS. No apparent anesthetic complications. Dr. Trae Luz
[2021-07-09 08:59] VITALS: BP 111/64; PULSE 69
[2021-07-09] MEDS ORDERED: DESOGESTREL ETHINYL ESTRADIOL PO SCH (09:00)
--- NOTE | 2021-07-09 12:15 | OR ---
SURGEON: Robina Massey MD DATE OF PROCEDURE: 07/09/2021 PREOPERATIVE DIAGNOSES: A 31-year-old, G1, P0-0-1-0 with incomplete and thickened endometrium. POSTOPERATIVE DIAGNOSES: A 31-year-old, G1, P0-0-1-0 with incomplete and thickened endometrium. PROCEDURES: Diagnostic hysteroscopy with dilation and curettage. PRIMARY SURGEON: Robina Massey MD ANESTHESIA: General LMA. COMPLICATIONS: None. ESTIMATED BLOOD LOSS: 10 mL. FLUIDS: 600 mL LR. URINE OUTPUT: 25 mL of clear yellow urine at the beginning of procedure. HYSTEROSCOPIC FLUID DEFICIT: 100 mL normal saline. SPECIMENS: Endometrial curetting. ANTIBIOTIC PROPHYLAXIS: 1 g Ancef. FINDINGS: Normal-sized anteverted uterus with normal contour, sounded to 8 cm. Scant clots and retained products of conception within the uterus. PROCEDURE IN DETAIL: The patient was taken to the operating room where general LMA was obtained without difficulty. She was placed in the dorsal lithotomy position and [facility] She was prepared and draped in normal sterile fashion. Exam under anesthesia was performed. A Graves speculum was inserted into the vagina. The anterior lip of the cervix was grasped with an Allis clamp. The cervical os was dilated to size 6 with Hegar dilators. The uterus was sounded to 8 cm. A 5 mm 30-degree hysteroscope was introduced under direct visualization, and the uterus was distended with normal saline. Aforementioned findings were noted. The hysteroscope was then withdrawn, and the uterus was curetted in a clockwise fashion until a gritty texture was noted in all aspects of the uterus. The Allis clamp was removed from the cervix, and hemostasis was noted. The patient tolerated the procedure well. All sponge, lap, and needle counts were correct x2. The patient was awakened and taken to recovery room in stable condition. [id number] / MODL /[id number] MTDD
== END 2021-07-09 08:56 | disposition home or self-care (01) ==
LOC: MW.SDS 05:31
PROVIDERS: ATTEND Obstetrics & Gynecology
DX: O03.4 Incomplete spontaneous abortion without complication (principal); Z79.899 Other long term (current) drug therapy; Z98.890 Other specified postprocedural states; Z91.030 Bee allergy status; Z91.018 Allergy to other foods; Z91.048 Other nonmedicinal substance allergy status
CPT/HCPCS: 36415; 59812; 85025; 86850; 86900; 86901; 88305; A9270; J0690; J1100; J2250; J2704; J3010; J3490; J7120; 01965; J1885

== ENCOUNTER 2021-09-26 16:29 | Emergency (ER) | payer BC, MEDICAID ==
--- NOTE | 2021-09-26 20:17 | US ---
INDICATION: bleeding. Patient states 2 gestational sacs were seen on Monday. In vitro placed on 08/31/2021. LMP 08/11/2021. COMPARISON: None available. TECHNIQUE: Real-time lopez-scale imaging of the pelvis was performed. FINDINGS: Sonographic imaging demonstrates a single living intrauterine gestation. The embryo has a regular cardiac rate measuring 124 beats per minute. The embryo`s crown-rump length measurement of 0.34 cm corresponds to a gestational age of 6 weeks 3 days with a sonographic due date of 05/19/2022. There is a normal-appearing yolk sac. The placenta has not yet developed. No significant perigestational hemorrhage seen. The uterus measures 8.1 x 4.0 x 5.4 cm in size. The cervix appears closed. The right ovary was not visualized. The left ovary measures 3.1 x 2.0 x 1.8 cm. No free fluid in the cul-de-sac. IMPRESSION: Single living intrauterine gestation with crown rump length 0.34 cm which corresponds to a gestational age of 6 weeks 3 days with a sonographic due date of 05/19/2022. The clinical gestational age by LMP is 6 weeks 4 days. Dictated by Della Brunson MD @ 09/26/2021 8:09:52 PM (Electronically Signed)
--- NOTE | 2021-09-26 20:32 | EDM.PDOC ---
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 Patient is an IVF patient. She notes that she had twin embryos and had some vaginal spotting 2 weeks ago, went in for ultrasound last Monday, discovered that 1 embryo had . She was having some vaginal bleeding still at that time. Tonight had bright red blood per vagina heavier than baseline. No clots. No pain associated with it. No nausea or vomiting. She has noticed a burning sensation with urination, she notes that she got her urine tested last Monday and was also having the symptoms but had gone away but seems come back tonight. No fevers. - Related Data Allergies Allergy/AdvReac Type Severity Reaction Status Date / Time No Known Allergies Allergy Verified 09/26/21 16:56 Home Meds: Home Meds Desogestrel-Ethinyl Estradiol [Isibloom 28 Day Tablet] 1 tab PO DAILY 07/02/21 [History] Past Medical History - Past Health History Medical/Surgical History: Denies Medical/Surgical History HEENT History: Reports: None Cardiovascular History: Reports: None Respiratory History: Reports: None Gastrointestinal History: Reports: None Genitourinary History: Reports: None DRYING OVEN TENDER History: Reports: None Other DRYING OVEN TENDER History: hx of miscarrying Musculoskeletal History: Reports: None Neurological History: Reports: None Psychiatric History: Reports: None Endocrine/Metabolic History: Reports: None Hematologic History: Reports: None Immunologic History: Reports: None Oncologic (Cancer) History: Reports: None Dermatologic History: Reports: None - Infectious Disease History Infectious Disease History: Reports: Chicken Pox - Past Surgical History Head Surgeries/Procedures: Reports: None HEENT Surgical History: Reports: Adenoidectomy, Oral Surgery, Tonsillectomy Cardiovascular Surgical History: Reports: None Respiratory Surgical History: Reports: None GI Surgical History: Reports: None Female Surgical History: Reports: LEEP, Other (See Below) Other Female Surgeries/Procedures: egg retrival, states christiano salpingectomy Endocrine Surgical History: Reports: None Neurological Surgical History: Reports: None Musculoskeletal Surgical History: Reports: None Oncologic Surgical History: Reports: None Dermatological Surgical History: Reports: None Social & Family History - Family History Family Medical History: No Pertinent Family History - Caffeine Use Caffeine Use: Reports: None ED ROS GENERAL - Review of Systems Review Of Systems: Comprehensive ROS is negative, except as noted in HPI. ED EXAM, GENERAL - Physical Exam Exam: See Below Exam Limited By: No Limitations General Appearance: Alert, WD/WN, No Apparent Distress Ears: Hearing Grossly Normal Throat/Mouth: Normal Voice, No Airway Compromise Respiratory/Chest: No Respiratory Distress, Lungs Clear, Normal Breath Sounds, No Accessory Muscle Use Cardiovascular: Normal Peripheral Pulses, Regular Rate, Rhythm GI/Abdominal: Soft, Non-Tender Extremities: Normal Inspection Neurological: Alert, Normal Cognition, Normal Gait Psychiatric: Normal Affect, Normal Mood Skin Exam: Warm, Dry, Intact, Normal Color Course - Vital Signs Last Recorded V/S: Last Vital Signs Temp 96.7 F L 09/26/21 16:57 Pulse 87 09/26/21 16:57 Resp 16 09/26/21 16:57 BP 124/77 09/26/21 16:57 Pulse Ox 100 09/26/21 16:57 - Orders/Labs/Meds Orders: Active Orders 24 hr Category Date Time Status ABO/RH TYPE [BBK] Stat Lab 09/26/21 20:49 Received UA RFX JARET AND CULT IF INDIC [URIN] Stat Lab 09/26/21 21:34 Received Labs: Laboratory Tests 09/26/21 09/26/21 09/26/21 Range/Units 20:49 20:49 21:34 WBC 10.35 (4.0-11.0) K/uL RBC 4.91 (4.30-5.90) M/uL Hgb 12.7 (12.0-16.0) g/dL Hct 38.8 (36.0-46.0) % MCV 79.0 L (80.0-98.0) fL MCH 25.9 L (27.0-32.0) pg MCHC 32.7 (31.0-37.0) g/dL RDW Std Deviation 47.5 (28.0-62.0) fl RDW Coeff of Lilly 17 H (11.0-15.0) % Plt Count 351 (150-400) K/uL MPV 9.60 (7.40-12.00) fL Neut % (Auto) 67.7 (48.0-80.0) % Lymph % (Auto) 27.1 (16.0-40.0) % Mayes % (Auto) 4.7 (0.0-15.0) % Eos % (Auto) 0.4 (0.0-7.0) % Baso % (Auto) 0.1 (0.0-1.5) % Neut # (Auto) 7.0 H (1.4-5.7) K/uL Lymph # (Auto) 2.8 H (0.6-2.4) K/uL Mayes # (Auto) 0.5 (0.0-0.8) K/uL Eos # (Auto) 0.0 (0.0-0.7) K/uL Baso # (Auto) 0.0 (0.0-0.1) K/uL Nucleated RBC % 0.0 /100WBC Nucleated RBCs # 0 K/uL Sodium 138 (136-145) mmol/L Potassium 3.9 (3.5-5.1) mmol/L Chloride 102 (98-107) mmol/L Carbon Dioxide 23.5 (21.0-32.0) mmol/L BUN 9 (7.0-18.0) mg/dL Creatinine 0.7 (0.6-1.0) mg/dL Est Cr Clr Drug Dosing 102.40 mL/min Estimated GFR (MDRD) > 60.0 ml/min Glucose 91 (74-106) mg/dL Calcium 9.3 (8.5-10.1) mg/dL Total Bilirubin 0.2 (0.2-1.0) mg/dL AST 16 (15-37) IU/L ALT 31 (14-63) IU/L Alkaline Phosphatase 86 (46-116) U/L Total Protein 7.5 (6.4-8.2) g/dL Albumin 3.1 L (3.4-5.0) g/dL Globulin 4.4 H (2.6-4.0) g/dL Albumin/Globulin Ratio 0.7 L (0.9-1.6) HCG, Quant 60962.0 mIU/mL Urine Color YELLOW Urine Appearance CLOUDY Urine pH 6.0 (5.0-8.0) Ur Specific Ehrhardt >= 1.030 (1.001-1.035) Urine Protein 30 H (NEGATIVE) mg/dL Urine Glucose (UA) NEGATIVE (NEGATIVE) mg/dL Urine Ketones >=80 (NEGATIVE) mg/dL Urine Occult Blood LARGE H (NEGATIVE) Urine Nitrite NEGATIVE (NEGATIVE) Urine Bilirubin SMALL H (NEGATIVE) Urine Urobilinogen 0.2 (<2.0) EU/dL Ur Leukocyte Esterase NEGATIVE (NEGATIVE) - Re-Assessments/Exams Free Text/Narrative Re-Assessment/Exam: 09/26/21 20:31 preordered ultrasonography shows normal intrauterine with positive heart rate. No significant subchorionic hemorrhage. We will follow-up additional labs and disposition patient accordingly 09/26/21 21:46 Labs are reassuring. Will discharge patient and recommend follow-up with fertility specialist tomorrow. Return precautions discussed Departure - Departure Time of Disposition: 21:46 Disposition: Home, Self-Care 01 Condition: Good Clinical Impression: Threatened miscarriage - Discharge Information Instructions: Threatened Miscarriage, [id number] Referrals: PCP,None [Primary Care Provider] - Forms: ED Department Discharge Additional Instructions: Your labs and ultrasonography are reassuring. Please follow-up with your fertility specialist. The following information is given to patients seen in the emergency department who are being discharged to home. This information is to outline your options for follow-up care. We provide all patients seen in our emergency department with a follow-up referral. The need for follow-up, as well as the timing and circumstances, are variable depending upon the specifics of your emergency department visit. If you don't have a primary care physician on staff, we will provide you with a referral. We always advise you to contact your personal physician following an emergency department visit to inform them of the circumstance of the visit and for follow-up with them and/or the need for any referrals to a consulting specialist. The emergency department will also refer you to a specialist when appropriate. This referral assures that you have the opportunity for follow-up care with a specialist. All of these measure are taken in an effort to provide you with optimal care, which includes your follow-up. Under all circumstances we always encourage you to contact your private physician who remains a resource for coordinating your care. When calling for follow-up care, please make the office aware that this follow-up is from your recent emergency room visit. If for any reason you are refused follow-up, please contact the [facility] Emergency Department at and asked to speak to the emergency department charge nurse. Please follow up with your primary care physician. If you do not have a primary care physician, see below: [facility] [address] [place] [address] [id number] [facility] [address] [place] [id number] [facility] [address] [place] [id number] Sepsis Event Note (ED) - Evaluation Sepsis Screening Result: No Definite Risk - Focused Exam Vital Signs: Vital Signs Temp Pulse Resp BP Pulse Ox 09/26/21 16:57 96.7 F L 87 16 124/77 100
[2021-09-26 21:37] LABS: BLOOD UREA NITROGEN,BUN 9 mg/dL (7.0-18.0); CARBON DIOXIDE,CO2 23.5 mmol/L (21.0-32.0); CHLORIDE,CL 102 mmol/L (98-107); GLUCOSE RANDOM 91 mg/dL (74-106); POTASSIUM,K 3.9 mmol/L (3.5-5.1); SODIUM,NA 138 mmol/L (136-145)
[2021-09-26 21:57] VITALS: BP 113/68; PULSE 75
== END 2021-09-26 21:58 | disposition home or self-care (01) ==
LOC: MW.ED 16:29
DX: O20.0 Threatened abortion (principal); Z3A.01 Less than 8 weeks gestation of pregnancy
CPT/HCPCS: 36415; 76801; 76801-26; 80053; 81001; 84702; 85025; 86900; 86901; 99283; 99284-25

== ENCOUNTER 2022-09-28 20:38 | Emergency (ER) | payer BC ==
[2022-09-28 21:37] VITALS: BP 119/80; PULSE 100
[2022-09-28] MEDS ORDERED: Dexamethasone 10 MG/ML SDV IM STA (21:46)
[2022-09-28] MEDS ORDERED: diphenhydrAMINE 50 MG Cap PO ONE (22:22)
[2022-09-28] MEDS ORDERED: predniSONE 20 MG Tab PO ONE (22:22)
== END 2022-09-28 23:06 | disposition home or self-care (01) ==
LOC: MW.ED 20:38
DX: R07.0 Pain in throat (principal); R11.10 Vomiting, unspecified
CPT/HCPCS: 99283; A9270

== ENCOUNTER 2024-11-11 03:32 | Emergency (ER) | payer BC ==
[2024-11-11 03:44] VITALS: BP 140/73; PULSE 92
[2024-11-11 04:39] LABS: BASOPHILS ABSOLUTE AUTO 0.01 K/uL (0.00-0.20); BASOPHILS PERCENT AUTO 0.1 % (0.0-1.0); EOSINOPHILS ABSOLUTE AUTO 0.13 K/uL (0.00-0.45); EOSINOPHILS PERCENT AUTO 1.3 % (0.0-6.0); HEMATOCRIT 40.3 % (37.0-47.0); IMMATURE GRAN ABSOLUTE AUTO 0.02 K/uL (0.00-0.05); IMMATURE GRAN PERCENT AUTO 0.2 % (0.0-0.4); LYMPHOCYTES ABSOLUTE AUTO 2.63 K/uL (1.00-4.80); LYMPHOCYTES PERCENT AUTO 26.3 % (24.0-44.0); MEAN CORPUSCULAR HEMOGLOBIN 30.7 pg (28.0-32.0); MEAN CORPUSCULAR HGB CONC 34.7 g/dL (32.0-36.0); MEAN CORPUSCULAR VOLUME 88.4 fL (83.0-99.0); MEAN PLATELET VOLUME 8.9 fL (9.4-12.3); MONOCYTES ABSOLUTE AUTO 0.46 K/uL (0.00-0.80); MONOCYTES PERCENT AUTO 4.6 % (0.0-8.0); NEUTROPHILS ABSOLUTE AUTO 6.76 K/uL (1.80-7.70); NEUTROPHILS PERCENT AUTO 67.5 % (41.0-71.0); PLATELET COUNT,PLT 333 K/uL (150-400); RED BLOOD CELL COUNT 4.56 M/uL (4.10-5.30); WHITE BLOOD CELL COUNT,WBC 10.01 K/uL (3.9-11.3)
[2024-11-11 05:18] LABS: A/G RATIO 0.7 (0.9-1.6); ALANINE AMINOTRANSFERASE,ALT 25 IU/L (14-63); ALBUMIN 2.8 g/dL (3.4-5.0); ALKALINE PHOSPHATASE 90 U/L (46-116); ASPARTATE AMNIOTRANSFERASE,AST 14 IU/L (15-37); BILIRUBIN TOTAL 0.2 mg/dL (0.2-1.0); BLOOD UREA NITROGEN,BUN 7 mg/dL (7.0-18.0); CALCIUM 9.4 mg/dL (8.5-10.1); CHLORIDE,CL 104 mmol/L (98-107); CREATININE 0.7 mg/dL (0.6-1.0); GLUCOSE RANDOM 94 mg/dL (74-106); POTASSIUM,K 3.9 mmol/L (3.5-5.1); PROTEIN TOTAL,TP 7.1 g/dL (6.4-8.2); SODIUM,NA 139 mmol/L (136-145)
[2024-11-11 05:24] LABS: ESTIMATED GFR 118 mL/min (>60)
[2024-11-11 06:26] LABS: CANDIDA DNA PROBE NEGATIVE (NEGATIVE); GARDNERELLA DNA PROBE NEGATIVE (NEGATIVE); TRICHOMONAS DNA PROBE NEGATIVE (NEGATIVE)
[2024-11-11 06:34] LABS: APPEARANCE,URINE CLOUDY; BILIRUBIN,URINE NEGATIVE (NEGATIVE); COLOR,URINE DARK YELLOW; GLUCOSE,URINE NEGATIVE (NEGATIVE); KETONES,URINE NEGATIVE (NEGATIVE); PH,URINE 7.5 (5.0-8.0); PROTEIN,URINE TRACE mg/dL (NEGATIVE)
[2024-11-11 06:35] LABS: LEUKOCYTE ESTERASE,URINE NEGATIVE (NEGATIVE); NITRITE,URINE NEGATIVE (NEGATIVE); OCCULT BLOOD,URINE LARGE (NEGATIVE); UROBILINOGEN,URINE 0.2 EU/dL (<2.0)
[2024-11-11 06:36] LABS: BACTERIA,URINE 1+ (NEGATIVE); EPITHELIAL CELLS,URINE MODERATE (NONE-FEW); RBC,URINE 35-40 (0-2/HPF); WBC,URINE 0-2 (0-5/HPF)
[2024-11-11 07:09] LABS: C. TRACHOMATIS BY PCR NOT DETECTED; N. GONORRHOEAE BY PCR NOT DETECTED
== END 2024-11-11 07:15 | disposition home or self-care (01) ==
LOC: MW.ED 03:32
DX: O20.0 Threatened abortion (principal); O23.11 Infections of bladder in pregnancy, first trimester; N30.01 Acute cystitis with hematuria; Z79.890 Hormone replacement therapy; Z79.899 Other long term (current) drug therapy; Z75.8 Other problems related to medical facilities and other health care; Z3A.01 Less than 8 weeks gestation of pregnancy
CPT/HCPCS: 36415; 76817; 76817-26; 80048; 80076; 81001; 82670; 84144; 84702; 85025; 86900; 86901; 87480; 87491; 87510; 87591; 87660; 99283; 99284

== ENCOUNTER 2025-06-23 09:07 | Inpatient (IN) | payer BC ==
[2025-06-23] MEDS ORDERED: Sodium Chloride 0.9% 10 ML Syringe FLUSH PRN ×2 (10:02→10:05)
[2025-06-23] MEDS ORDERED: Carboprost Tromethamine 250 MCG/1 mL Vial IM PRN (10:02)
[2025-06-23] MEDS ORDERED: Sodium Chloride 0.9% 2.5 ML Syringe FLUSH PRN ×2 (10:02→10:05)
[2025-06-23] MEDS ORDERED: Water For Irrigation,Sterile 1,000 ML Container IRR PRN (10:02)
[2025-06-23] MEDS ORDERED: Butorphanol 1 MG/ML SDV IVPUSH PRN (10:02)
[2025-06-23] MEDS ORDERED: Magnesium Sulfate 4 GM/100 mL 4 GM in Premix Bag 1 BAG IV ONE (10:05)
[2025-06-23] MEDS ORDERED: Calcium Gluconate 10% 1 GM/10 ML SDV IV PRN (10:05)
[2025-06-23] MEDS ORDERED: Magnesium Sulfate 20 GM/500mL 20 GM/500 ML BAG IV SCH (10:15)
[2025-06-23] MEDS ORDERED: Oxytocin/0.9 % Sodium Chloride 30 UNIT/500 ML BAG IV SCH (10:15)
[2025-06-23 10:23] LABS: APPEARANCE,URINE CLEAR; GLUCOSE,URINE NEGATIVE (NEGATIVE); OCCULT BLOOD,URINE NEGATIVE (NEGATIVE)
[2025-06-23 10:34] LABS: EPITHELIAL CELLS,URINE FEW (NONE-FEW)
[2025-06-23 10:46] LABS: CREATININE,URINE RAND 89.9 mg/dL; PROTEIN CREATININE RATIO,URINE 0.4; PROTEIN,URINE RANDOM 36.8 mg/dL (<11.9)
[2025-06-23 10:51] LABS: MEAN PLATELET VOLUME 10.2 fL (9.4-12.3); NRBC ABSOLUTE 0.00 K/uL (0.00-0.02); NRBC PERCENT 0.0 /100WBC (0.0-0.2); PLATELET COUNT,PLT 225 K/uL (150-400); RED BLOOD CELL COUNT 3.78 M/uL (4.10-5.30); WHITE BLOOD CELL COUNT,WBC 9.69 K/uL (3.9-11.3)
[2025-06-23 11:22] LABS: A/G RATIO 0.6 (0.9-1.6); ALANINE AMINOTRANSFERASE,ALT 15 IU/L (14-63); ASPARTATE AMNIOTRANSFERASE,AST 16 IU/L (15-37); BILIRUBIN TOTAL 0.3 mg/dL (0.2-1.0); BLOOD UREA NITROGEN,BUN 6 mg/dL (7.0-18.0); CARBON DIOXIDE,CO2 24.0 mmol/L (21.0-32.0); CHLORIDE,CL 106 mmol/L (98-107); CREATININE 0.7 mg/dL (0.6-1.0); GLUCOSE RANDOM 75 mg/dL (74-106); POTASSIUM,K 2.9 mmol/L (3.5-5.1); PROTEIN TOTAL,TP 6.5 g/dL (6.4-8.2); SODIUM,NA 141 mmol/L (136-145)
[2025-06-23 11:29] LABS: ESTIMATED GFR 117 mL/min (>60)
[2025-06-23] MEDS ORDERED: ePHEDrine 50 MG/ML SDV IVPUSH PRN (11:41)
[2025-06-23] MEDS ORDERED: dexmedeTOMIDine HCl 200 MCG/2 ML SDV EPIDUR SCH (11:45)
[2025-06-23] MEDS ORDERED: Terbutaline 1 MG/ML SDV SUBCUT PRN (12:20)
[2025-06-23] MEDS: Oxytocin/0.9 % Sodium Chloride 30 UNIT/500 ML BAG IV SCH (12:30)
[2025-06-23] MEDS: Ropivacaine HCl/PF 400 MG in Premix Bag 1 BAG EPIDUR SCH (14:15)
[2025-06-23] MEDS: Lactated Ringers 1,000 ML IV SCH (20:16)
[2025-06-24] MEDS ORDERED: fentaNYL 100 MCG/2 ML SDV ONE (01:16)
[2025-06-24] MEDS: Ondansetron 4 MG/2 ML SDV IVPUSH PRN (02:50)
[2025-06-24] MEDS: Lactated Ringers 1,000 ML IV SCH (02:52)
[2025-06-24] MEDS ORDERED: Aluminum Hydroxide/Magnesium Hydroxide/Simethicone Susp 30 ML Cup PO PRN (05:05)
[2025-06-24] MEDS ORDERED: Lanolin 100% Cream 7 GM Tube TOP PRN (05:05)
[2025-06-24 05:12] LABS: PH,UMBILICAL ARTERIAL 7.32 (7.18-7.38)
[2025-06-24 05:13] LABS: PH,UMBILICAL VENOUS 7.32 (7.25-7.45)
[2025-06-24] MEDS: Witch Hazel Medicated Pads 40/Jar TOP PRN (05:57)
[2025-06-24] MEDS: Benzocaine/Menthol 20%-0.5% Spray 78 GM Cannister TOP PRN (05:58)
[2025-06-25 05:42] LABS: BASOPHILS ABSOLUTE AUTO 0.03 K/uL (0.00-0.20); BASOPHILS PERCENT AUTO 0.2 % (0.0-1.0); EOSINOPHILS ABSOLUTE AUTO 0.17 K/uL (0.00-0.45); EOSINOPHILS PERCENT AUTO 1.0 % (0.0-6.0); IMMATURE GRAN ABSOLUTE AUTO 0.12 K/uL (0.00-0.05); IMMATURE GRAN PERCENT AUTO 0.7 % (0.0-0.4); LYMPHOCYTES ABSOLUTE AUTO 2.12 K/uL (1.00-4.80); LYMPHOCYTES PERCENT AUTO 12.5 % (24.0-44.0); MEAN PLATELET VOLUME 10.1 fL (9.4-12.3); MONOCYTES ABSOLUTE AUTO 0.84 K/uL (0.00-0.80); MONOCYTES PERCENT AUTO 4.9 % (0.0-8.0); NEUTROPHILS ABSOLUTE AUTO 13.71 K/uL (1.80-7.70); NEUTROPHILS PERCENT AUTO 80.7 % (41.0-71.0); NRBC ABSOLUTE 0.00 K/uL (0.00-0.02); NRBC PERCENT 0.0 /100WBC (0.0-0.2); PLATELET COUNT,PLT 204 K/uL (150-400); RED BLOOD CELL COUNT 3.34 M/uL (4.10-5.30); WHITE BLOOD CELL COUNT,WBC 16.99 K/uL (3.9-11.3)
[2025-06-25 06:12] LABS: A/G RATIO 0.6 (0.9-1.6); ALANINE AMINOTRANSFERASE,ALT 24.0 IU/L (14-63); ASPARTATE AMNIOTRANSFERASE,AST 31.0 IU/L (15-37); BILIRUBIN TOTAL 0.3 mg/dL (0.2-1.0); BLOOD UREA NITROGEN,BUN 6.0 mg/dL (7.0-18.0); CARBON DIOXIDE,CO2 25.9 mmol/L (21.0-32.0); CHLORIDE,CL 109.0 mmol/L (98-107); CREATININE 0.8 mg/dL (0.6-1.0); EST CRCL DRUG DOSING (CG) 82.74 mL/min; GLUCOSE RANDOM 76.0 mg/dL (74-106); POTASSIUM,K 3.4 mmol/L (3.5-5.1); PROTEIN TOTAL,TP 5.6 g/dL (6.4-8.2); SODIUM,NA 145.0 mmol/L (136-145)
[2025-06-25 06:13] LABS: ESTIMATED GFR 100.0 mL/min (>60)
[2025-06-25] MEDS ORDERED: NIFEdipine 30 MG Tab.ER PO SCH (11:15)
[2025-06-25] MEDS: NIFEdipine 30 MG Tab.ER PO SCH (16:03)
[2025-06-26 16:33] VITALS: BP 135/76; PULSE 81
== END 2025-06-26 16:40 | disposition home or self-care (01) | DRG 560 ==
LOC: MW.OBCHECK 09:07 → MW.OB 09:08 → MW.OBCHECK 09:08 → INTOOBSV 10:02 → UNDOADMOB 10:02 → MW.OB 10:02 → OBSVTOIN 10:02 → MW.OBCHECK 10:16 → MW.OB 10:16 → UNDODISIN 06-26 16:40
PROVIDERS: ADMIT Obstetrics & Gynecology; ATTEND Obstetrics & Gynecology
PROC: 10E0XZZ Delivery of Products of Conception, External Approach (ICD-10-PCS; principal; 2025-06-23)
PROC: 10907ZC Drainage of Amniotic Fluid, Therapeutic from Products of Conception, Via Natural or Artificial Opening (ICD-10-PCS; 2025-06-23)
PROC: 3E033VJ Introduction of Other Hormone into Peripheral Vein, Percutaneous Approach (ICD-10-PCS; 2025-06-23)
PROC: 3E0R3BZ Introduction of Anesthetic Agent into Spinal Canal, Percutaneous Approach (ICD-10-PCS; 2025-06-23)
PROC: 0KQM0ZZ Repair Perineum Muscle, Open Approach (ICD-10-PCS; 2025-06-23)
DX: O14.94 Unspecified pre-eclampsia, complicating childbirth (principal); O70.1 Second degree perineal laceration during delivery; Z3A.38 38 weeks gestation of pregnancy; Z37.0 Single live birth; Z88.8 Allergy status to other drugs, medicaments and biological substances; Z90.49 Acquired absence of other specified parts of digestive tract; Z98.890 Other specified postprocedural states; Z79.82 Long term (current) use of aspirin; Z79.899 Other long term (current) drug therapy
CPT/HCPCS: 01967; 36415; 51701; 59025; 59409; 76819; 76819-26; 80053; 81001; 82570; 82803; 84156; 84550; 85025; 85027; 86592; 86850; 86900; 86901; A9270-GY; J0665; J2371; J2405; J2590; J2795; J3010; J7120